=== PATIENT | male | born 1950 | race Caucasian/White ===

== ENCOUNTER 2017-03-09 14:11 | Inpatient (IN) ==
[2017-03-09] MEDS ORDERED: Aspirin 81 MG TAB.CHEW PO ONE (14:15)
--- NOTE | 2017-03-09 14:26 | Emergency Department Note ---
Disposition Clinical Impression: NSTEMI (non-ST elevated myocardial infarction) Disposition: Admitted As Inpatient Condition: Good Referrals: Thomas Gannon MD [Primary Care Provider] - Time of Disposition: 15:37 General Adult HPI - General Stated complaint: chest pain Time Seen by Provider: 03/09/17 14:14 Nursing Notes Reviewed: Yes Vital Signs Reviewed: Yes - History of Present Illness HPI Narrative: History of present illness: 66-year-old male history of hypertension hypercholesterolemia former smoker presents with exertional chest pain and pressure going to bilateral jaws with some nausea and dizziness. No prior history of coronary artery disease no prior stress test or cardiac catheterizations. Patient states he was in the [employer] working and he had about a 7 out of 10 just a heaviness in his chest that went to both jaws. She has never experienced this before. Patient says is about a 5 out of 10 right now he took aspirin and Advil when he was home. Here for further evaluation. - Related Data Home Medications Medication Instructions Recorded Confirmed Lisinopril/Hydrochlorothiazide 1 each PO QAM 12/01/14 12/01/14 [Zestoretic 10-12.5 mg Tablet] Multivits,Ca,Min/Iron/FA/Lycop 1 each PO QPM 12/01/14 12/01/14 [Centrum Men's Tablet] Previous Rx's Medication Instructions Recorded Aspirin 325 mg PO DAILY tablet 12/03/14 Glycerin/Propylene Glycol 15 ml OP Q1-2H PRN #1 drops 12/03/14 [Artificial Tears Drops] PredniSONE 10 mg PO DAILY #18 tablet 12/03/14 Allergies Allergy/AdvReac Type Severity Reaction Status Date / Time No Known Allergies Allergy Verified 03/09/17 14:42 All systems ED: reviewed and negative except as stated. Cardiovascular: Reports: chest pain, dyspnea on exertion Respiratory: Reports: dyspnea Neurological: Reports: other (Dizziness) Past Medical History - Past Medical History Attestation: Yes The following information was validated with the patient. Source: patient Medical history: Reports: hyperlipidemia, hypertension, other ( Hypercholesterolemia) Surgical history: Reports: no surgical history Psychiatric history: Reports: no psych history - Social History Smoking Status: Former smoker Alcohol use: Reports: none, occasionally Drug use: Reports: none Physical Exam - General Limitations: no limitations General appearance: alert, in distress - Head Head exam: atraumatic, normocephalic - Eye Eye exam: Present: normal appearance, PERRL, EOMI - ENT ENT exam: normal exam, normal oropharynx - Neck Neck exam: Present: normal inspection, full ROM - Chest Chest inspection: Present: normal inspection - Respiratory Respiratory exam: Present: normal lung sounds bilaterally - Cardiovascular Cardiovascular exam: Present: regular rate, normal rhythm - Abdominal Exam Abdominal exam: Present: soft, Non-Tender - Extremities Exam Extremities exam: Present: normal inspection, full ROM. Absent: pedal edema - Expanded Lower Extremity Exam Neurovascular/Tendon exam: Present: normal capillary refill Gait: observed and normal - Back Exam Back exam: Present: normal inspection, full ROM - Neurological Exam Neurological exam: Present: alert, oriented X3, CN II-XII intact - Psychiatric Psychiatric exam: Present: normal affect, normal mood - Skin Skin exam: Present: warm, dry, intact Course - Reevaluation(s) Reevaluation #1: Patient reported for acute coronary syndrome and chest pain. His heart score is 4 or greater. Troponin chest x-ray screening labs. Patient getting a nitroglycerin trial. Admission anticipated with disposition pending. Time: 14:28 Reevaluation #2: Krystal Reeves is nearing completion. Was notified patient had a chronically elevated troponin of 0.12. It was 0 when he was checked in November. Patient' s pain at its worse was 8 out of 10 now 6 out of 10 after 1 sublingual nitroglycerin. Patient is getting 2 more sublingual nitroglycerin repeat EKG will then likely consult cardiology. Disposition pending. Providing an additional 30 minutes of critical care services for this patient. Clinical diagnosis at this stage is NSTEMI Time: 15:08 Reevaluation #3: The case with the hairspring cutter Dr. Granado who agreed with my anticoagulation and admission to the hospitalist. Patient hospitalist awaiting call back. Disposition pending Time: 15:36 - Consultations Consultation #1: Discussed the case with the hospitalist Dr. JACK, patient accepted for admission in stable condition Vital Signs Temperature 97.9 F 03/09/17 14:17 Pulse Rate 80 03/09/17 14:17 Respiratory Rate 20 03/09/17 14:17 Blood Pressure 182/113 03/09/17 14:17 O2 Sat by Pulse Oximetry 93 03/09/17 14:17 Temperature 97.9 F 03/09/17 14:17 Pulse Rate 78 03/09/17 15:32 Respiratory Rate 20 03/09/17 15:32 Blood Pressure 119/83 03/09/17 15:32 O2 Sat by Pulse Oximetry 88 03/09/17 15:32 Oxygen Delivery Oxygen Delivery Nasal Cannula Medical Decision Making - Medical Records Medical records reviewed: Yes I reviewed the patient's medical records. - Lab Data Lab results reviewed: Yes I reviewed the patient's lab results. Result diagrams: 03/09/17 14:29 03/09/17 14:29 Lab Results 03/09/17 03/09/17 03/09/17 Range/Units 14:29 14:29 14:29 WBC 10.7 (4.3-11.1) K/mcL RBC 5.57 H (4.19-5.50) M/mcL Hgb 16.1 (12.9-16.9) g/dL Hct 49.2 (37.5-50.1) % MCV 88.3 (83.0-100.0) fL MCH 28.9 (28.0-33.3) pg MCHC 32.7 (31.6-35.5) g/dL RDW 13.2 (11.5-14.5) % Plt Count 273 (140-400) K/mcL MPV 9.7 (9.4-12.4) fL Immature Gran % 0.3 (0-4) % Seg Neutrophils % 55.3 % Lymphocytes % 30.5 % Monocytes % 7.8 % Eosinophils % 5.5 % Basophils % 0.6 % Neutrophils # 5.9 (1.6-8.9) K/mcL Lymphocytes # 3.3 (0.6-4.6) K/mcL Monocytes # 0.8 (0.0-1.3) K/mcL Eosinophils # 0.6 (0.0-0.6) K/mcL Basophils # 0.1 (0.0-0.2) K/mcL PT 11.1 (9.4-12.1) Seconds INR 1.0 Sodium 138 (136-145) mEq/L Potassium 3.8 (3.5-4.5) mEq/L Chloride 100 (98-109) mEq/L Carbon Dioxide 29 (19-29) mEq/L BUN 10 (8-26) mg/dL Creatinine 1.09 (0.72-1.25) mg/dL Est GFR ( Amer) > 60 (> 60) Est GFR (Non-Af Amer) > 60 (> 60) BUN/Creatinine Ratio 9 (6-26) Glucose 128 H (70-99) mg/dL Calculated Osmolality 287 (280-300) Calcium 9.1 (8.6-10.8) mg/dL Troponin I (0-0.03) ng/mL 03/09/17 Range/Units 14:29 WBC (4.3-11.1) K/mcL RBC (4.19-5.50) M/mcL Hgb (12.9-16.9) g/dL Hct (37.5-50.1) % MCV (83.0-100.0) fL MCH (28.0-33.3) pg MCHC (31.6-35.5) g/dL RDW (11.5-14.5) % Plt Count (140-400) K/mcL MPV (9.4-12.4) fL Immature Gran % (0-4) % Seg Neutrophils % % Lymphocytes % % Monocytes % % Eosinophils % % Basophils % % Neutrophils # (1.6-8.9) K/mcL Lymphocytes # (0.6-4.6) K/mcL Monocytes # (0.0-1.3) K/mcL Eosinophils # (0.0-0.6) K/mcL Basophils # (0.0-0.2) K/mcL PT (9.4-12.1) Seconds INR Sodium (136-145) mEq/L Potassium (3.5-4.5) mEq/L Chloride (98-109) mEq/L Carbon Dioxide (19-29) mEq/L BUN (8-26) mg/dL Creatinine (0.72-1.25) mg/dL Est GFR ( Amer) (> 60) Est GFR (Non-Af Amer) (> 60) BUN/Creatinine Ratio (6-26) Glucose (70-99) mg/dL Calculated Osmolality (280-300) Calcium (8.6-10.8) mg/dL Troponin I 0.12 H* (0-0.03) ng/mL - Radiology Data Radiology results reviewed: Yes I reviewed the patient's radiology results. - EKG Data EKG #1 EKG attestation: Yes I reviewed and interpreted this EKG. EKG results narrative: Twelve-lead EKG: Without cardiology shows Sinus rhythm at 79 bpm, normal LA QRS and QT corrected. Nonspecific ST-T changes. No acute ischemic changes when compared to prior EKG 12/01/2014
[2017-03-09 14:43] LABS: Basophils # 0.1 K/mcL (0.0-0.2); Basophils % 0.6 %; Eosinophils # 0.6 K/mcL (0.0-0.6); Eosinophils % 5.5 %; Hematocrit 49.2 % (37.5-50.1); Hemoglobin 16.1 g/dL (12.9-16.9); Immature Granulocytes % 0.3 % (0-4); Lymphocytes # 3.3 K/mcL (0.6-4.6); Lymphocytes % 30.5 %; Mean Corpuscular HGB Conc 32.7 g/dL (31.6-35.5); Mean Corpuscular Hemoglobin 28.9 pg (28.0-33.3); Mean Corpuscular Volume 88.3 fL (83.0-100.0); Mean Platelet Volume 9.7 fL (9.4-12.4); Monocytes # 0.8 K/mcL (0.0-1.3); Monocytes % 7.8 %; Neutrophils # 5.9 K/mcL (1.6-8.9); Platelet Count 273 K/mcL (140-400); Red Blood Count 5.57 M/mcL (4.19-5.50); Red Cell Distribution Width 13.2 % (11.5-14.5); Segmented Neutrophils % 55.3 %
[2017-03-09 14:52] LABS: Prothrombin Time 11.1 Seconds (9.4-12.1)
[2017-03-09 14:54] LABS: BUN/Creatinine Ratio 9 (6-26); Blood Urea Nitrogen 10 mg/dL (8-26); Calcium 9.1 mg/dL (8.6-10.8); Carbon Dioxide 29 mEq/L (19-29); Chloride 100 mEq/L (98-109); Glucose 128 mg/dL (70-99); Osmolality,Calculated 287 (280-300); Potassium 3.8 mEq/L (3.5-4.5); Sodium 138 mEq/L (136-145); eGFR For African Americans > 60 (> 60); eGFR For Non-African Americans > 60 (> 60)
[2017-03-09] MEDS: Nitroglycerin 0.4 MG TAB.SUBL SL PRN ×3 (14:56→15:26)
[2017-03-09] MEDS ORDERED: *HR* Heparin 5,000 UNIT/ML VIAL IVP ONE (15:35)
[2017-03-09] MEDS ORDERED: *HR* Heparin 5,000 UNIT/ML VIAL IVP PRN ×4 (15:35→16:28)
[2017-03-09] MEDS ORDERED: Heparin 25,000 UNIT/500 ML D5W 25,000 UNIT/500 ML BAG IVC SCH ×2 (15:45→16:30)
[2017-03-09 15:58] LABS: Activated Partial Thrombo Time 29.9 Seconds (26.0-36.0)
[2017-03-09] MEDS ORDERED: Ondansetron ODT 4 MG TAB.RAPDIS SL PRN (16:25)
[2017-03-09] MEDS ORDERED: *HR* Morphine 2 MG/ML SYRINGE IVP PRN (16:25)
[2017-03-09] MEDS ORDERED: Naloxone 0.4 MG/ML INJ IVP PRN (16:25)
[2017-03-09] MEDS ORDERED: Acetaminophen 325 MG TABLET PO PRN (16:25)
--- NOTE | 2017-03-09 16:37 | Internal Med History&Physical ---
<Ray Tompkins - Last Filed: 03/09/17 16:48> Date of Encounter: 03/09/17 Time of Encounter: 16:33 Assessment and Plan (1) NSTEMI (non-ST elevated myocardial infarction) Current visit: Yes Status: Acute Patient presents with symptoms of typical angina with chest pain radiating into his left jaw improve with sublingual nitroglycerin. - EKG demonstrates T-wave depressions in leads V2-V4 Troponin 0.12 - MARGARITA score: 4 ( greater than 3 CAD risk factors, aspirin use in the last 7 days, EKG changes, positive cardiac markers - Cardiology consult from the emergency department. Cardiac Hx 12/08: CTA neck-Unremarkable. Echo-EF 60-65%, mild LV diastolic dysfunction. Plan: - Cardiology to evaluate - ACS protocol with initiation of heparin drip - Nothing by mouth, admit to general medical floor and placed on cardiac monitoring - Standing daily weight - Echocardiogram - EKG - Aspirin 81 mg by mouth daily - Start metoprolol 12.5 mg by mouth twice a day - Morphine for chest pain. - Sublevel nitroglycerin - Atorvastatin 40 mg by mouth daily (2) HTN (hypertension) Current visit: No Status: Acute Patient has a known history of hypertension for which she was taking lisinopril- hydrochlorothiazide. - Current blood pressure 140/96. Plan: - Hold lisinopril prior to possible cardiac catheterization - Start metoprolol 12.5 mg by mouth twice a day Qualifiers: Hypertension type: essential hypertension Qualified Code(s): I10 - Essential (primary) hypertension (3) Hyperlipemia Current visit: No Status: Acute Patient has a self stated history of hyperlipidemia but has not started on any statin medications. - Lipid panel ordered - In the setting of NSTEMI will start Atorvastatin 40mg PO daily Qualifiers: Qualified Code(s): E78.5 - Hyperlipidemia, unspecified (4) DVT prophylaxis Current visit: Yes Status: Acute On Heparin drip currently. Internal Medicine - H&P: HPI Chief complaint: Chest pain Admitted From: Home Plans for Post Hospital Care: Home History of present illness: Mr. Fuller is a 66 year old male past medical history of hypertension, Mcgrath's palsy, diastolic heart failure presented to the emergency department with left- sided chest pain. 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 He denies ever having symptoms like this prior. He is quite active daily working in the [employer] with his truck and walking about the [employer]. He denies ever having chest pain or symptoms similar to this in the past. After the onset of discomfort she got in his truck and drove home where he took 2 aspirins and ibuprofen capsule. At the onset of his pain is described as 8/10 sharp chest pain that did not radiate to his back but did radiate to his left jaw and left face. The aspirin and ibuprofen did not improve his symptoms and he presented emergency department with his where he received nitroglycerin improving his chest discomfort to a 4/5 where it is currently with some mild left-sided jaw pain. He denies any associated nausea, vomiting, palpitations, shortness of breath, abdominal pain, constipation or diarrhea. He denies any diaphoresis or fevers. He denies any recent illnesses. He denies ever having any surgeries in the last time he was in the hospital he was evaluated for Mcgrath's palsy versus TIA. He denies any prior history of coronary artery disease. He does mention that his brother had coronary artery disease and required a CABG and several years later. He denies any other acute concerns at this time. Past Med Surg Social Fam HX - Past Medical History Medical history: hyperlipidemia, hypertension, other (Hypercholesterolemia) Psychiatric history: no psych history - Past Surgical History Surgical History: no surgical history - Social History Smoking Status: Former smoker (30 pack year history) Smokeless Tobacco Status: No Alcohol use: occasionally Drug use: none - Family History Father Living Status: Hx Family Cancer: Yes (Lung cancer) Mother Living Status: Hx Family Neurologic Disorders: Yes (Stroke) Brother Living Status: Hx Family Cardiac Disorders: Yes (CAD, CABG) Internal Medicine - H&P: Meds Lisinopril/Hydrochlorothiazide [Zestoretic 10-12.5 mg Tablet] 1 each PO QAM 11/07 [History] Multivits,Ca,Min/Iron/FA/Lycop [Centrum Men's Tablet] 1 each PO QPM 12/01/14 [ History] Aspirin 325 mg PO DAILY tablet 12/03/14 [Rx] Glycerin/Propylene Glycol [Artificial Tears Drops] 15 ml OP Q1-2H PRN #1 drops 12/03/14 [Rx] PredniSONE 10 mg PO DAILY #18 tablet 12/03/14 [Rx] 3 Allergy/AdvReac Type Severity Reaction Status Date / Time No Known Allergies Allergy Verified 03/09/17 14:42 All Systems PM: A 10-system review of systems was performed and is negative for pertinent findings except as documented above in the HPI. - Constitutional Constitutional: no chills, no fever(s), no night sweats Additional comments: Headache - EENT Eyes: no change in vision, no discharge, no pain, no photophobia Ears: no ear discharge, no ear pain, no tinnitus Nose, mouth and throat: mouth pain, no dysphagia, no nasal discharge, no neck pain, no sore throat - Cardiovascular Cardiovascular ROS IM: chest pain, no diaphoresis, no dyspnea, no dyspnea on exertion, no edema, no lightheadedness, no palpitations, no syncope - Respiratory Respiratory: no cough, no dyspnea, no wheezing, no excessive phlegm production - Gastrointestinal Gastrointestinal: no abdominal pain, no diarrhea, no hematemesis, no hematochezia, no melena, no nausea, no vomiting - Musculoskeletal Musculoskeletal ROS IM: no numbness, no tingling - Integumentary Integumentary IM: no rash, no unusual bruising - Neurological Neurological ROS: no confusion, no convulsions, no focal weakness, no numbness, no tingling, no tremor(s) - Hematologic/Lymphatic Hematologic/Lymphatic: no easy bruising - Constitutional Vitals: Temp Pulse Resp BP Pulse Ox 97.9 F 65 20 140/96 96 03/09/17 14:17 03/09/17 16:09 03/09/17 16:18 03/09/17 16:18 03/09/17 16:09 - Head Head exam: Present: atraumatic, normocephalic - Eye Eye exam: Present: PERRL, conjuntiva pink, sclera anicteric Pupils: Present: PERRL - Neck Neck exam general surgery: Present: supple, trachea midline. Absent: lymphadenopathy - Respiratory Respiratory exam: Present: CTAB. Absent: accessory muscle use, rales, rhonchi, wheezes - Cardiovascular Cardiovascular exam: Present: RRR, +S1, +S2. Absent: diastolic murmur, gallop, rubs, systolic murmur - GI/Abdominal GI/Abdominal exam: Present: normal bowel sounds, soft, no peritoneal signs. Absent: distended, tenderness - Extremities Exam Extremities exam: Present: warm, radial pulses palpable and symmetrical. Absent : calf tenderness, cyanotic, pedal edema - Neurological Exam Neurological exam: Present: CN II-XII intact, oriented X3, no focal deficits. Absent: pronater drift, facial droop, speech deficit - Skin Skin exam: Present: dry, intact Internal Med - H&P Results - Labs CBC & Chem 7: 03/09/17 14:29 03/09/17 14:29 <Terrell Bolanos - Last Filed: 03/09/17 18:15> Date of Encounter: 03/09/17 Assessment and Plan (1) NSTEMI (non-ST elevated myocardial infarction) Current visit: Yes Status: Acute (2) HTN (hypertension) Current visit: No Status: Chronic Qualifiers: Hypertension type: essential hypertension Qualified Code(s): I10 - Essential (primary) hypertension (3) Hyperlipemia Current visit: No Status: Chronic Qualifiers: Hyperlipidemia type: mixed hyperlipidemia Qualified Code(s): E78.2 - Mixed hyperlipidemia Internal Medicine - H&P: HPI History of present illness: Mr. Fuller is a 66 year old male All Systems PM: A 10-system review of systems was performed and is negative for pertinent findings except as documented above in the HPI. - Constitutional Vitals: Temp Pulse Resp BP Pulse Ox 97.9 F 65 20 140/96 96 03/09/17 14:17 03/09/17 16:09 03/09/17 16:18 03/09/17 16:18 03/09/17 16:09 Internal Med - H&P Results - Labs CBC & Chem 7: 03/09/17 17:08 03/09/17 14:29 Labs: Short CBC 03/09/17 Range/Units 17:08 WBC 13.3 H (4.3-11.1) K/mcL Hgb 15.7 (12.9-16.9) g/dL Hct 47.6 (37.5-50.1) % Plt Count 290 (140-400) K/mcL - Attending Attestation I examined this patient and my medical decision-making was reviewed with the Resident Physician on 03/09/17. I agree with the documented findings, disposition and treatment plan as described except to the extent set forth below. Mr Fuller is 66 y/o male with hx HTN presented to ED with complaints of chest and jaw pain. He was working today and had sudden onset of chest pressure radiating to jaw. He drove home and took ASA and motrin. No relief so came to ED. Evaluated and found to have ST segment depression and increasing troponin. He was placed on heparin and evaluated. He was subsequently admitted with acute NSTEMI. Currently he has some residual chest discomfort and is on nitro drip. EKG has improved. Exam Alert. Comfortable Mucus membranes dry Heart reg - not tachy Lungs clear Abd soft No edema I/P 1. Acute NSTEMI - on nitro, heparin. NPO after midnight. 2. HTN 3. Check lipids in AM Further diagnoses and plan as above.
--- NOTE | 2017-03-09 17:31 | Cardiology Consult Note ---
Date of Encounter: 03/09/17 Time of Encounter: 17:29 Assessment and Plan (1) NSTEMI (non-ST elevated myocardial infarction) Current Visit: Yes Status: Acute Symptoms, clinical findings suggestive of a NSTEMI. During my evaluation in ER, reported no chest discomfort since medical therapy started. Recommend continue ACS therapy. Check TTE. R/B/A to a LHC discussed. He and family are agreeable to proceed. Plan for tomorrow unless condition would warrant performing procedure sooner. Thanks, Eric Granado DO, FACC Discussion w patient/family: The assessment and plan as outlined above was discussed with the patient and/or family members who expressed understanding and agreement. All questions were answered. Thank you for involving us in the care of your patient. Please call with any questions. History of Present Illness Consult date: 03/09/17 Requesting physician: Terrell Bolanos Consult reason: NSTEMI Chief complaint: Chest discomfort History of present illness: Mr. Fuller is a 66 year old male presented with chest discomfort. 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 Substernal discomfort, no radiation. Mild nausea reported. Symptoms persistent until he received medications - aspirin/nitroglycering. I saw him in ER and stated felt much better. No prior cardiac history. Denies prior ID, stress testing, LHCs. Past Med Surg Social Fam HX - Past Medical History Medical history: hyperlipidemia, hypertension, other Psychiatric history: no psych history - Past Surgical History Surgical History: no surgical history - Social History Smoking Status: Former smoker Smokeless Tobacco Status: No Alcohol use: occasionally Drug use: none - Family History Mother Living Status: Hx Family Neurologic Disorders: Yes (Stroke) Brother Living Status: Hx Family Cardiac Disorders: Yes (CAD, CABG) Father Living Status: Hx Family Cancer: Yes (Lung cancer) Medications and Allergies Lisinopril/Hydrochlorothiazide [Zestoretic 10-12.5 mg Tablet] 1 each PO QAM 11/07 [History] Multivits,Ca,Min/Iron/FA/Lycop [Centrum Men's Tablet] 1 each PO QPM 12/01/14 [ History] Aspirin 325 mg PO DAILY tablet 12/03/14 [Rx] Glycerin/Propylene Glycol [Artificial Tears Drops] 15 ml OP Q1-2H PRN #1 drops 12/03/14 [Rx] PredniSONE 10 mg PO DAILY #18 tablet 12/03/14 [Rx] 3 Allergy/AdvReac Type Severity Reaction Status Date / Time No Known Allergies Allergy Verified 03/09/17 14:42 All Systems Review: A 10-system review of systems was performed and is negative for pertinent findings except as documented above in the HPI. - Cardiovascular Cardiovascular: as per HPI, chest pain at rest, chest pain with exertion - Gastrointestinal Gastrointestinal: nausea Physical Examination Vital Signs, Last 4 Hours Pulse Resp BP Pulse Ox 03/09/17 16:18 20 140/96 03/09/17 16:09 65 20 140/96 96 General: Conversant HEENT: Atraumatic, Normocephaly, Mucus Membranes Moist Neck: No JVD, Normal carotid pulses Cardiac: Reg Rate and Rhythm, Normal S1 and S2, No Murmur Lungs: Normal Breath Sounds, No Wheeze, Rales, Rhonchi Neuro: Alert and responsive, No focal deficits noted Abdomen: Soft, Non-Tender Skin: No rashes noted on visualized skin Musculoskeletal: No Chest Wall Tenderness Extremities: No Clubbing, No Cyanosis, No Edema Results 03/09/17 14:29 03/09/17 14:29 Impressions Chest X-Ray 03/09/17 14:15 IMPRESSION: No significant findings in the chest. D/ / Luis Miguel Hsu MD / Luis Miguel Hsu MD Interpreting Provider: Luis Miguel Hsu MD - Imaging and Cardiology Chest Xray: report reviewed - EKG Interpretation EKG results cardiology: personally reviewed Consult Discharge Plan - Plan
[2017-03-09 17:36] LABS: Hematocrit 47.6 % (37.5-50.1); Hemoglobin 15.7 g/dL (12.9-16.9); Mean Corpuscular Hemoglobin 28.6 pg (28.0-33.3); Mean Corpuscular Volume 86.7 fL (83.0-100.0); Mean Platelet Volume 10.2 fL (9.4-12.4); Platelet Count 290 K/mcL (140-400); Red Blood Count 5.49 M/mcL (4.19-5.50); Red Cell Distribution Width 13.1 % (11.5-14.5)
[2017-03-09 17:44] LABS: INR 1.1; Prothrombin Time 11.5 Seconds (9.4-12.1)
[2017-03-09] MEDS ORDERED: Nitroglycerin 25 MG/250 ML INFUS..BTL IVC SCH (17:45)
[2017-03-09 18:02] LABS: Activated Partial Thrombo Time 147.9 Seconds (26.0-36.0)
[2017-03-09 18:05] LABS: Chol/HDL Ratio 6.5 (0-4.9)
[2017-03-09 18:11] LABS: Heparin anti-factor XA UFH 0.98 IU/mL (0.30-0.70)
[2017-03-10 04:36] LABS: Basophils # 0.1 K/mcL (0.0-0.2); Basophils % 0.4 %; Eosinophils # 0.5 K/mcL (0.0-0.6); Eosinophils % 4.3 %; Hematocrit 46.2 % (37.5-50.1); Hemoglobin 15.2 g/dL (12.9-16.9); Immature Granulocytes % 0.3 % (0-4); Lymphocytes # 2.7 K/mcL (0.6-4.6); Lymphocytes % 23.9 %; Mean Corpuscular HGB Conc 32.9 g/dL (31.6-35.5); Mean Corpuscular Hemoglobin 28.5 pg (28.0-33.3); Mean Corpuscular Volume 86.7 fL (83.0-100.0); Mean Platelet Volume 9.6 fL (9.4-12.4); Monocytes % 9.1 %; Platelet Count 286 K/mcL (140-400); Red Blood Count 5.33 M/mcL (4.19-5.50); Red Cell Distribution Width 13.2 % (11.5-14.5)
[2017-03-10 04:47] LABS: BUN/Creatinine Ratio 10 (6-26); Blood Urea Nitrogen 11 mg/dL (8-26); Calcium 9.2 mg/dL (8.6-10.8); Carbon Dioxide 27 mEq/L (19-29); Chloride 104 mEq/L (98-109); Glucose 105 mg/dL (70-99); Osmolality,Calculated 290 (280-300); Potassium 4.1 mEq/L (3.5-4.5); Sodium 140 mEq/L (136-145); eGFR For African Americans > 60 (> 60); eGFR For Non-African Americans > 60 (> 60)
--- NOTE | 2017-03-10 06:29 | Event Note ---
Date of Encounter: 03/10/17 Time of Encounter: 01:00 Pt's troponin went up to 8.1 from 1.02. Pt denied any CP / SOB, he was resting comfortably, he does feel lot better now compare to y/d. I ordered on EKG - which showed new T wave inversions in anterior and inferior leads. Nurse did talk to bond analyst wheat farmer Dr. Granado who suggested inc his Nitro gtt and scheduled for jockey agent LHC.
[2017-03-10] MEDS ORDERED: Nitroglycerin 1,000 MCG/10 ML VIAL IV ONE (08:39)
[2017-03-10] MEDS ORDERED: Heparin 1,000 UNITS/500 mL NS 500 ML ONE (08:39)
[2017-03-10] MEDS ORDERED: *HR* Heparin 10,000 UNIT/10 ML VIAL ONE (08:39)
[2017-03-10] MEDS ORDERED: 0.9 % Sodium Chloride 1,000 ML ONE ×2 (08:39→09:18)
--- NOTE | 2017-03-10 08:42 | Internal Med Progress Note ---
<Ray Tompkins - Last Filed: 03/10/17 09:23> Date of Encounter: 03/10/17 Time of Encounter: 08:19 - Assessment and plan (1) NSTEMI (non-ST elevated myocardial infarction) Current Visit: Yes Status: Acute Assessment and plan: Patient presents with symptoms of typical angina with chest pain radiating into his left jaw improve with sublingual nitroglycerin. - EKG demonstrates T-wave depressions on admission in leads V2-V4, EKG this am without ST depression or elevation. Troponin 0.12 -> 1.02 -> 8.10 -> 19.83 - MARGARITA score: 4 ( greater than 3 CAD risk factors, aspirin use in the last 7 days, EKG changes, positive cardiac markers) Cardiac Hx 12/08: CTA neck-Unremarkable. Echo-EF 60-65%, mild LV diastolic dysfunction. - Cardiology following, plan for cardiac cath today. Plan: - Cardiology to evaluate - ACS protocol with initiation of heparin drip - Nothing by mouth, admit to general medical floor and placed on cardiac monitoring - Standing daily weight - Echocardiogram, results pending - EKG - Aspirin 81 mg by mouth daily - Continue metoprolol 12.5 mg by mouth twice a day - Morphine for chest pain. - Continue nitroglycerin drip - Atorvastatin 40 mg by mouth daily (2) HTN (hypertension) Current Visit: No Status: Chronic Assessment and plan: Patient has a known history of hypertension for which she was taking lisinopril- hydrochlorothiazide. - Current blood pressure appropriate Plan: - Hold lisinopril prior to possible cardiac catheterization - Start metoprolol 12.5 mg by mouth twice a day Qualifiers: Hypertension type: essential hypertension Qualified Code(s): I10 - Essential (primary) hypertension (3) Hyperlipemia Current Visit: No Status: Chronic Assessment and plan: Cholesterol 273, LDL 213, Plan: - Atorvastatin 40mg PO daily - discuss diet changes and exercise routine. Qualifiers: Hyperlipidemia type: mixed hyperlipidemia Qualified Code(s): E78.2 - Mixed hyperlipidemia (4) DVT prophylaxis Current Visit: Yes Status: Acute Assessment and plan: currently on heparin drip. - Subjective Interval history: Patient seen this am, chest pain free, complains of a mild headache on nitroglycern drip. Denies diaphoresis, chills, fever, chest pain, chest pressure , SOB, palpitations, N/V/D/C, abdominal pain. He has been NPO for cardiac cath today. No further questions. - Constitutional Vitals: Temp Pulse Resp BP Pulse Ox 98.8 F 79 18 133/88 96 03/10/17 07:08 03/10/17 07:08 03/10/17 07:08 03/10/17 07:08 03/10/17 07:08 General appearance: Present: cooperative, A&O X 3, pleasant - Head Head exam: Present: atraumatic, normocephalic - Eye Eye exam: Present: PERRL, conjuntiva pink, sclera anicteric Pupils: Present: PERRL - Neck Neck exam general surgery: Present: supple, trachea midline. Absent: lymphadenopathy - Respiratory Respiratory exam: Present: CTAB. Absent: accessory muscle use, rales, rhonchi, wheezes - Cardiovascular Cardiovascular exam: Present: RRR, +S1, +S2. Absent: diastolic murmur, gallop, rubs, systolic murmur - GI/Abdominal GI/Abdominal exam: Present: normal bowel sounds, soft, no peritoneal signs. Absent: distended, tenderness - Extremities Exam Extremities exam: Present: warm, radial pulses palpable and symmetrical. Absent : calf tenderness, cyanotic, pedal edema - Neurological Exam Neurological exam: Present: alert, oriented X3, no focal deficits. Absent: pronater drift, facial droop, speech deficit - Skin Skin exam: Present: dry, intact Internal Medicine: Result - Labs CBC & Chem 7: 03/10/17 04:23 03/10/17 04:23 Labs: Short CBC 03/09/17 03/10/17 Range/Units 17:08 04:23 WBC 13.3 H 11.3 H (4.3-11.1) K/mcL Hgb 15.7 15.2 (12.9-16.9) g/dL Hct 47.6 46.2 (37.5-50.1) % Plt Count 290 286 (140-400) K/mcL Neutrophils # 7.0 (1.6-8.9) K/mcL BMP 03/10/17 04:23 Sodium 140 Potassium 4.1 Chloride 104 Carbon Dioxide 27 BUN 11 Creatinine 1.10 Glucose 105 H Calcium 9.2 Cardiac Enzymes 03/09/17 03/09/1717 Range/Units 17:08 22:03 04:23 Troponin I 1.02 H* 8.10 H* 19.83 H* (0-0.03) ng/mL - ABG Interpretation ABG results: PT/INR, D-dimer PT 11.5 Seconds (9.4-12.1) 03/09/17 17:08 - VTE Reasons for not Prescribing Prophylaxis: Not indicated-Anticoagulated or INR therapeutic Consult Discharge Plan - Plan Referrals: Thomas Gannon MD [Primary Care Provider] - <Terrell Bolanos - Last Filed: 03/10/17 15:45> Date of Encounter: 03/10/17 - Assessment and plan (1) NSTEMI (non-ST elevated myocardial infarction) Current Visit: Yes Status: Acute (2) HTN (hypertension) Current Visit: No Status: Chronic Qualifiers: Hypertension type: essential hypertension Qualified Code(s): I10 - Essential (primary) hypertension (3) Hyperlipemia Current Visit: No Status: Chronic Qualifiers: Hyperlipidemia type: mixed hyperlipidemia Qualified Code(s): E78.2 - Mixed hyperlipidemia (4) CAD (coronary artery disease) Current Visit: Yes Status: Chronic Qualifiers: Coronary Disease-Associated Artery/Lesion type: [place] artery [place] vs. transplanted heart: [place] heart Associated angina: without angina Qualified Code(s): I25.10 - Atherosclerotic heart disease of [place] coronary artery without angina pectoris - Constitutional Vitals: Temp Pulse Resp BP Pulse Ox 98.1 F 89 16 111/74 93 03/10/17 14:47 03/10/17 14:47 03/10/17 14:47 03/10/17 14:47 03/10/17 14:47 Internal Medicine: Result - Labs CBC & Chem 7: 03/10/17 04:23 03/10/17 04:23 - ABG Interpretation ABG results: PT/INR, D-dimer PT 11.5 Seconds (9.4-12.1) 03/09/17 17:08 - Attending Attestation I examined this patient and my medical decision-making was reviewed with the Resident Physician on 03/10/17. I agree with the documented findings, disposition and treatment plan as described except to the extent set forth below. Mr Fuller is currently admitted for acute NSTEMI. He remains moderate to high risk due to potential for worsening cardiac status. Mr Fuller feels OK this AM. He has no chest pain at this time. Slept OK. No fever or chills. Awaiting cardiac cath. Exam Alert. Comfortable Mucus membranes dry Heart reg No wheeze Abd soft I/P 1. NSTEMI 2. CAD 3. HTN Further diagnoses and plan as above.
[2017-03-10] MEDS ORDERED: Aspirin 81 MG TAB.CHEW PO SCH (09:00)
[2017-03-10] MEDS ORDERED: *HR* FentaNYL (PF) 100 MCG/2 ML VIAL ONE (09:20)
[2017-03-10] MEDS ORDERED: *HR* Midazolam HCl 2 MG/2 ML VIAL ONE ×2 (09:20→09:34)
--- NOTE | 2017-03-10 09:21 | Pre-Sedation Evaluation ---
Pre-sedation evaluation - Pre-sedation checklist Date of procedure: 03/10/17 Procedure: [place] Recent Vitals: Last Vital Signs Temp 98.8 F 03/10/17 07:08 Pulse 79 03/10/17 07:08 Resp 18 03/10/17 07:08 BP 133/88 03/10/17 07:08 Pulse Ox 96 03/10/17 07:08 H&P (including ROS) documented in medical record: Yes Previous reaction to sedatives/anesthetics: Unknown Dietary Status: NPO after Midnight Airway Assessment: Patient can open mouth completely, TMJ function normal Dentition: No loose teeth or bridges Possible difficult airway: No ASA Classification *see protocol: CLASS II-Mild systemic disease Plan of Care: Pt appropriate candidate for procedure/moderate/conscious sedation , Risks/benefits of procedure/sedation discussed w/ patient/family
[2017-03-10] MEDS ORDERED: Tirofiban 12.5 MG/250ML 12.5 MG/250 ML BAG ONE (09:39)
--- NOTE | 2017-03-10 10:54 | Procedure Note ---
Date of procedure: 03/10/17 Pre-op diagnosis: Non-STEMI Post-op diagnosis: same Procedure: Cardiac catheter with coronary intervention. Diagnostic findings: LM-normal LAD-60% proximal Cx-30% mid, ectatic OM 2-100% proximal, ectatic RCA-40-50% mid, dominant LVEF-50-55% PCI: OM 2- 100% to 0% with a 3.0 mm x 24 mm Synergy GENI proximal postdilated to 3.5 mm and a 2.25 mm x 20 mm Synergy GENI in the midportion which is overlapped by the proximal stent. Impression: 1. Severe 1 vessel coronary disease with successful recatheterization using drug-eluting stent implantation 2 2. Moderate angiographically appearing stenosis of the LAD and RCA 3. Preserved LV systolic function Plan: 1. Aspirin indefinitely 2. Effient/equivalent for minimum of 1 year but given coronary ectasia would consider longer-term DAPT 3. Statin 4. Beta breanne 5. Consider further cardiac risk stratification of the LAD and RCA with stress testing Anesthesia: IV sedation Surgeon: Juan Craig Estimated blood loss (cc): 20 Pathology: none sent Condition: stable Disposition: ICU
--- NOTE | 2017-03-10 11:11 | Cardiology Progress Note ---
Date of Encounter: 03/10/17 Time of Encounter: 11:09 Assessment and Plan (1) NSTEMI (non-ST elevated myocardial infarction) Current Visit: Yes Status: Acute Non-ST segment elevation myocardial infarction. Recommend continue ACS therapy, including aspirin, statin, beta breanne, and heparin drip. Since patient is chest pain-free, we will hold off dual antiplatelet therapy until time of catheterization. Risks, benefits, and alternatives to cardiac catheterization discussed. Patient and agreeable. Scheduled for this morning. Further recommendations to follow cardiac catheterization and echocardiogram. Discussion w patient/family: The assessment and plan as outlined above was discussed with the patient and/or family members who expressed understanding and agreement. All questions were answered. Thank you for involving us in the care of your patient. Please call with any questions. Subjective Principal diagnosis: Chest discomfort Interval history: Patient seen and examined earlier today. Increase in troponin noted. Patient reports he was chest pain-free overnight and this morning. Objective General: Conversant, No Apparent Distress HEENT: Atraumatic, Normocephaly, Mucus Membranes Moist Neck: No JVD, Normal carotid pulses Cardiac: Reg Rate and Rhythm, Normal S1 and S2, No Murmur Lungs: Normal Breath Sounds, No Wheeze, Rales, Rhonchi Neuro: Alert and responsive, No focal deficits noted Abdomen: Soft, Non-Tender Skin: No rashes noted on visualized skin Musculoskeletal: No Chest Wall Tenderness Extremities: No Clubbing, No Cyanosis, No Edema Results 03/10/17 04:23 03/10/17 04:23 - EKG Interpretation EKG results cardiology: personally reviewed - VTE Reasons for not Prescribing Prophylaxis: Not indicated-Anticoagulated or INR therapeutic Consult Discharge Plan - Plan Referrals: Thomas Gannon MD [Primary Care Provider] -
--- NOTE | 2017-03-10 12:02 | Invasive Diagnostic Lab Proc ---
Name: Marvin Fuller Date of Study: 03/10/2017 Date: 1950 Ht: 69.0in Medical Record#: [id number] Age: 66 Wt: 198.42lb Gender: Male BSA: 2.06 Order #: [id number] BMI: 29.29 Physicians Procedure Physician: Juan Craig MD Referring MD: Thomas Gannon MD Referring MD: Staff Name Position Time In Isabel Fay RT (R) Monitor 09:16 AM Karishma Shook RN Intelligence Operations 09:16 AM Debo Ayala RT Scrub 09:16 AM Indications Indication Non-Stemi Procedures Performed Procedure L HRT ARTERY/VENTRICLE ANGIO PRQ CARD GENI STENT W/ANGIO 1 VSL Pre-Procedure Checklist Informed consent is complete signed and on chart. H&P is on chart. ID band is on and ID verified with patient. Patient NPO for procedure The procedure was described for the patient and questions were answered. Blood Pressure: 132/84 ECG is on chart. Rhythm: NSR Plan of Care Patient will tolerate the procedure without complications. Adequate level of comfort will be maintained. Hemodynamics will remain stable Patient will recover from procedure without complications. Respiratory function will be maintained. Cardiac rhythm will remain stable. Patient temperature will be maintained. Patient and/or family have verbalized understanding of the procedure. Patient Education Chief Complaint/Reason for Test: Cardiac Cath Developmental Category: Adult (18-64 years) Developmentally Appropriate for Age: Yes Learning Barriers: None Education Needs: Procedure Education Method: Verbal Information Taught: Cardiac Cath Educational Evaluation: Able to repeat information Intravenous Access Time IV Size Location DC'd Fluid/Drip Rate Units RN 08:36 AM 18g 1 1/4" Patent On Arrival Lt Antecubital 0.9NaCl 25 ml/hr Karishma Shook RN Allergies No Known Allergies Vital Signs Time BP (mmHg) HR (bpm) O2 Sat. RR (bpm) LOC 133 / 88 79 96 % 18 5 = Fully awake and oriented or at pre-proc level 09:16 AM / % 5 = Fully awake and oriented or at pre-proc level 09:16 AM / % 4 = Oriented but drowsy 09:31 AM / % 4 = Oriented but drowsy 09:47 AM / % 4 = Oriented but drowsy 10:02 AM / % 4 = Oriented but drowsy 10:17 AM / % 4 = Oriented but drowsy 09:19 AM 132 / 84 82 94 % 24 09:24 AM 127 / 89 77 97 % 28 09:29 AM 134 / 83 68 96 % 14 09:34 AM 124 / 80 69 97 % 15 09:39 AM 117 / 86 73 96 % 15 09:44 AM 121 / 84 74 97 % 17 09:49 AM 115 / 77 71 97 % 13 09:54 AM 113 / 77 69 97 % 14 09:59 AM 106 / 78 68 97 % 14 10:04 AM 112 / 78 67 97 % 13 10:09 AM 122 / 79 66 97 % 15 10:14 AM 113 / 74 69 95 % 15 10:19 AM 121 / 78 66 96 % 15 10:24 AM 111 / 83 65 96 % 14 10:29 AM 116 / 76 67 94 % 21 10:34 AM 127 / 81 66 96 % 17 10:45 AM 121 / 63 66 92 % 20 5 = Fully awake and oriented or at pre-proc level 11:00 AM 122 / 81 66 93 % 20 5 = Fully awake and oriented or at pre-proc level 11:15 AM 110 / 78 69 92 % 16 5 = Fully awake and oriented or at pre-proc level 11:30 AM 123 / 92 64 93 % 22 5 = Fully awake and oriented or at pre-proc level Procedural Medications Time Medication Dose Units Method Given By 09:16 AM Oxygen 2 L/min nasal cannula Karishma Shook RN 09:22 AM Versed 2 mg Intravenous Karishma Shook RN 09:22 AM Fentanyl 50 mcg Intravenous Karishma Shook RN 09:32 AM Lidocaine 2% 20 ml Subcutaneous Juan Craig MD 09:34 AM Versed 1 mg Intravenous Karishma Shook RN 09:43 AM Heparin 4000 units Intravenous Karishma Shook RN 09:45 AM Aggrastat Bolus: 46 ml Intravenous Karishma Shook RN 09:45 AM Aggrastat 12.5mg/250ml 16.5 ml Intravenous Karishma Shook RN 10:12 AM Nitroglycerin 200 mcg Intracoronary Juan Craig MD 10:24 AM Nitroglycerin 200 mcg Intracoronary Juan Craig MD 10:32 AM Effient 60 mg Orally Karishma Shook RN ASA Classification: CLASS II- Mild systemic disease (i.e. well-controlled diabetes, hypertension, asthma, cigarette smoking) Horace Score Preprocedure Postprocedure Activity 2- Moves 4 extremities sustained head lift Activity 2- Moves 4 extremities sustained head lift Circulation 2- SBP +/= 20 points of pre-anesthetic level Circulation 2- SBP +/= 20 points of pre-anesthetic level Consciousness 2- Awake and alert oriented x 3 Consciousness 2- Awake and alert oriented x 3 O2 Saturation 2- Able to maintain O2 satruation of 92% on room air O2 Saturation 2- Able to maintain O2 satruation of 92% on room air Respiratory 2- Able to deep breathe and cough well Respiratory 2- Able to deep breathe and cough well Total Score 10 Total Score 10 Contrast Agent: Isovue Diagnostic Contrast: 179 ml Total Contrast: 179 ml Fluoro Dose: 1843 mGy Activated Clotting Time Time Seconds to Clot 09:43 AM 150 10:02 AM 263 10:32 AM 218 11:35 AM 152 Procedure Log Time Note Enter By 09:15 AM CathStat 09:15 AM 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 twilson 09:16 AM Procedure start 09:16 twilson 09:16 AM ASA Class CLASS II- Mild systemic disease (i.e. well-controlled diabetes, hypertension, asthma, cigarette smoking) twilson 09:16 AM Patient charges- Angio tray pack, Navilyst 3mm J, Pulse Oximetry and ACIST tubing and transducer twilson 09:16 AM IV Supplies used: J loop Angio Cath. twilson 09:16 AM Isabel Fay RT (R) Position: Monitor Time in: :16 twilson 09:16 AM Karishma Shook RN Position: Intelligence Operations Time in: :16 twilson 09:16 AM Debo Ayala RT Position: Scrub Time in: :16 twilson 09:16 AM Case Delayed no twilson 09:16 AM Time: 09:16 Oxygen on at 2 L/min per nasal cannula by Karishma Shook RN twilson 09:16 AM Time: 09:16 Patient comfortable and pain free: Yes twilson 09:16 AM Time: 09:16LOC: 5 = Fully awake and oriented or at pre-proc level twilson 09:18 AM Vitals capture started with the following parameters, Patient=Adult, Interval=5 min, Initial Vigufhea=136 mmHg, Deflation Rate=5 mmHg, Cuff placed on Right Arm 09:19 AM HR=82 bpm, FGWV=031/84 mmhg, SpO2=94.0 %, Resp=24 B/min 09:21 AM Recorded ECG: HR=82 Condition=Condition 1 09:22 AM Time: 09:22 Versed 2 mg Intravenous Given by Karishma Shook RN twilson 09:22 AM Time: 09:22 Fentanyl 50 mcg Intravenous Given by Karishma Shook RN twilson 09:23 AM Hair removed from procedure site in procedure lab using clippers. Bilateral groin prepped with Chloraprep by Karishma Shook RN, safety strap applied then patient was draped. Skin intact. twilson 09:24 AM HR=77 bpm, QZJG=953/89 mmhg, SpO2=97.0 %, Resp=28 B/min 09:29 AM HR=68 bpm, JZEE=628/83 mmhg, SpO2=96.0 %, Resp=14 B/min 09:29 AM Pressure channel 3 zeroed. 09:30 AM Pressure channel 2 zero failed. 09:30 AM Pressure channel 2 zeroed. 09:31 AM Time out performed according to hospital policy twilson 09:31 AM Time: 09:16LOC: 4 = Oriented but drowsy twilson 09:32 AM Time: 09:16 Patient comfortable and pain free: Yes twilson 09:32 AM Time: 09:32 20 ml Lidocaine 2% to right groin Subcutaneous Given by Juan Craig MD twilson 09:33 AM Micro-Introducer Kit utilized for sheath placement twilson 09:33 AM Access obtained by percutaneous puncture. 6Fr 10cm Terumo [place] sheath placed in right Femoral artery. [id number] twilson 09:34 AM 5Fr FL 4 catheter inserted over the wire DNC twilson 09:34 AM HR=69 bpm, UDDM=312/80 mmhg, SpO2=97.0 %, Resp=15 B/min 09:34 AM Wire removed, intact. twilson 09:34 AM Time: 09:34 Versed 1 mg Intravenous Given by Karishma Shook RN twilson 09:35 AM LCA angiography performed in multiple views. twilson 09:35 AM Recorded Pressure: Ao, HR=67, Condition=Condition 1 (Aorta) Ao 109/80/95 09:36 AM Inflation device was opened. twilson 09:36 AM Bed management called for 2N bed. twilson 09:37 AM Catheter removed twilson 09:37 AM 5Fr FR 4 catheter inserted over the wire [facility] twilson 09:37 AM Wire removed, intact. twilson 09:38 AM RCA angiography performed in multiple views. twilson 09:38 AM Recorded Pressure: Ao, HR=67, Condition=Condition 1 (Aorta) Ao 110/82/96 09:39 AM HR=73 bpm, QXLQ=659/86 mmhg, SpO2=96.0 %, Resp=15 B/min 09:39 AM Catheter removed twilson 09:39 AM 5Fr Pigtail catheter inserted over the wire [facility] twilson 09:40 AM heparin was turned off in room per Karishma Shook. twilson 09:41 AM Pressure channel 2 zero failed. 09:41 AM Pressure channel 2 zeroed. 09:41 AM Recorded Pressure: LV, HR=71, Condition=Condition 1 (Left Ventricle) LV 117/-1/7 09:41 AM Catheter selectively placed in left ventricle twilson 09:42 AM Bolus angiogram of left Ventricle complete: 12 ml/sec for a total of 24 mls twilson 09:42 AM Recorded Pressure: LV, Ao, HR=72, Condition=Condition 1 (Left Ventricle) LV 123/0/6, (Aorta) Ao 123/76/96 09:42 AM Pressure channel 2 zeroed. 09:42 AM Wire removed twilson 09:42 AM Catheter removed twilson 09:43 AM PCI Status Urgent twilson :43 AM 6Fr XB3.5 Cordis guide catheter was used to cannulate the PCI vessel successfully. reused? No twilson 09:43 AM ACT is 150. twilson 09:44 AM HR=74 bpm, DUEH=976/84 mmhg, SpO2=97.0 %, Resp=17 B/min :44 AM Time: :43 Heparin 4000 units Intravenous Given by Karishma Shook RN twilson 09:44 AM Guide catheter removed intact. twilson 09:44 AM 6Fr XB4.0 Cordis guide catheter was used to cannulate the PCI vessel successfully. reused? No tw:45 AM Wire removed intact. twilson 09:45 AM Time: 09:45 Aggrastat Bolus: 46 ml Intravenous Given by Karishma Shook RN Varner pump twilson 09:46 AM Time: 09:45 Aggrastat 12.5mg/250ml 16.5 ml Intravenous Given by Karishma Shook RN Varner pump twilson 09:46 AM .014 Choice Extra Support 182cm guide wire across target lesion- successful. reused? No twilson 09:47 AM PCI Indication: PCI for high risk Non-STEMI or unstable angina twilson :47 AM Time: :LOC: 4 = Oriented but drowsy twilson :47 AM Time: 09:32 Patient comfortable and pain free: Yes twilson 09:49 AM HR=71 bpm, JDNS=820/77 mmhg, SpO2=97.0 %, Resp=13 B/min 09:49 AM PCI lesion in 2nd Marginal. Pre Stenosis: 100 Pre MARGARITA Flow: 0: No Flow/No perfusion twilson 09:50 AM Guide wire removed intact. twilson 09:50 AM .014 Whisper 190cm guide wire across target lesion- successful. reused? No twilson 09:50 AM Circumflex, Obtuse Marginal, Left Posterior Descending, and Left Posterolateral Coronary Arteries with 100 % stenosis. If graft is supplying this area, 0 % stenosis twilson 09:54 AM HR=69 bpm, KYGV=312/77 mmhg, SpO2=97.0 %, Resp=14 B/min 09:55 AM Drawing ACT and running. twilson 09:55 AM 6F PRONTO V4 Extraction Catheter inserted over the wire. twilson 09:58 AM Pronto catheter removed, intact. twilson 09:58 AM Recorded Pressure: Ao, HR=69, Condition=Condition 1 (Aorta) Ao 113/82/96 09:58 AM 2.5 mm x 20 mm Emerge Monorail balloon across target lesion- successful. reused? No twilson 09:59 AM HR=68 bpm, XXDB=870/78 mmhg, SpO2=97.0 %, Resp=14 B/min 10:01 AM Balloon inflated @ 6 samanta for 60 seconds twilson 10:02 AM Time: :47 Patient comfortable and pain free: Yes twilson 10:02 AM Time: :47LOC: 4 = Oriented but drowsy twilson 10:02 AM Balloon inflated @ 8 samanta for 60 seconds twilson 10:02 AM At 10:02 the ACT was 263 seconds. twilson 10:03 AM Balloon catheter removed intact. twilson 10:04 AM HR=67 bpm, FACR=416/78 mmhg, SpO2=97.0 %, Resp=13 B/min 10:05 AM Recorded Pressure: Ao, HR=68, Condition=Condition 1 (Aorta) Ao 122/86/103 10:09 AM HR=66 bpm, QNKF=257/79 mmhg, SpO2=97.0 %, Resp=15 B/min 10:09 AM Recorded Pressure: Ao, HR=68, Condition=Condition 1 (Aorta) Ao 110/84/96 10:09 AM 2.25mm x 20mm Synergy drug-eluting stent across target lesion- successful Lot #[id number] twilson 10:09 AM Stent deployed @ 14 samanta for 20 seconds twilson 10:10 AM Stent delivery system removed intact. twilson 10:13 AM Time: 10:12 Nitroglycerin 200 mcg Intracoronary Given by Juan Craig MD twilson 10:13 AM Guide wire removed intact. twilson 10:13 AM Recorded Pressure: Ao, HR=80, Condition=Condition 1 (Aorta) Ao 99/73/86 10:14 AM HR=69 bpm, CHIT=259/74 mmhg, SpO2=95.0 %, Resp=15 B/min 10:16 AM Whisper wire reinserted. twilson 10:17 AM Time: 10:02LOC: 4 = Oriented but drowsy twilson 10:17 AM Time: 10:02 Patient comfortable and pain free: Yes twilson 10:18 AM 3.0mm x 24mm Synergy drug-eluting stent across target lesion- successful Lot #[id number] twilson 10:19 AM HR=66 bpm, PPRD=323/78 mmhg, SpO2=96.0 %, Resp=15 B/min 10:20 AM Stent deployed @ 11 samanta for 15 seconds twilson 10:20 AM Stent delivery system removed intact. twilson 10:22 AM 3.5 mm x 15mm NC Emerge balloon across target lesion- successful. reused? No twilson 10:23 AM Balloon inflated @ 20 samanta for 20 seconds twilson 10:23 AM Balloon inflated @ 20 samanta for 10 seconds twilson 10:24 AM HR=65 bpm, OYUS=056/83 mmhg, SpO2=96.0 %, Resp=14 B/min 10:24 AM Balloon catheter removed intact. twilson 10:24 AM Time: 10:24 Nitroglycerin 200 mcg Intracoronary Given by Juan Craig MD twilson 10: AM Wire and catheter removed, intact. twilson 10:27 AM Bolus angiogram of right Femoral complete: 2 ml/sec for a total of 4 mls twilson 10:28 AM ACT drawn. twilson 10:28 AM Procedure completed at 10:28 twilson 10:29 AM HR=67 bpm, SZVK=869/76 mmhg, SpO2=94.0 %, Resp=21 B/min 10:30 AM Sign out completed: Radiation Dose 1842.79 mGy Fluoro Time: 12 Isovue 370 - 200ml contrast 179 ml given by Juan Craig MD. Complications: NoneCardiac Rehab Consult needed: YesConfirmed administered medications: Yes twilson 10:30 AM Isovue 370 - 500ml,1 Bottle(s) used. twilson 10:30 AM Sheath left in place to be pulled on floor/holding areaV+Pad twilson 10:32 AM ACT is 218. twilson 10:32 AM Time: 10:32 Effient 60 mg Orally Given by Karishma Shook RN twilson 10:32 AM Time: 10:17 Patient comfortable and pain free: Yes twilson 10:33 AM Time: 10:17LOC: 4 = Oriented but drowsy twilson 10:33 AM Estimated Blood Loss: minimal twilson 10:33 AM Post ECG NSR twilson 10:34 AM HR=66 bpm, GMNV=263/81 mmhg, SpO2=96.0 %, Resp=17 B/min 10:34 AM Post Blood Pressure 116/76 twilson 10:34 AM 10:34 Post Pulses Bilateral DP & PT 1+ twilson 10:34 AM 10:34 Post Pulses Bilateral radial 1+ twilson 10:35 AM Information taught Cardiac Cath and PCI twilson 10:35 AM Education needs Procedure, Plan of Care, and Responsibilities of Patient in Care twilson 10:35 AM Learning barriers :None twilson 10:35 AM Education Methods Verbal twilson 10:35 AM Education evaluation Able to repeat information twilson 10:35 AM Site status No bleeding/hematoma - Rt Groin as reported by Debo Ayala RT at 10:35 twilson 10:35 AM Opsite applied twilson 10:35 AM Plavix, Effient or Brilinta given Yes twilson 10:36 AM Family placed in consult room. twilson 10:37 AM Coronary Dominance: right twilson 10:38 AM Lesion found in Mid RCA. Pre Stenosis: 40 Pre MARGARITA Flow: twilson 10:39 AM Right Coronary, Right Posterior Descending Arteries with Right Posterolateral and Acute Marginal branches with 40 % stenosis. If graft is supplying this area, 0 % stenosis twilson 10:39 AM Lesion found in Mid LAD. Pre Stenosis: 60 Pre MARGARITA Flow: twilson 10:40 AM Lesion found in Mid Circumflex. Pre Stenosis: 30 Pre MARGARITA Flow: twilson 10:44 AM No 2N or ICU beds available. Patient in 2N being moved to 2A and then 2N bed will need cleaned. twilson 10:46 AM Mid/Distal Left Anterior Descending Coronary Artery and diagonal branches with 60% stenosis. If graft is supplying this area, 0 % stenosis twilson 10:46 AM Patient out of room: 10:46 twilson 10:46 AM Patient will recover in holding room with the call team until bed is available. twilson 10:50 AM Received patient to holding area bay 4. Monitors applied. Family at bedside. [facility] 11[facility]35 AM At 11:35 the ACT was 152 seconds. [facility] 11:36 AM Arterial sheath pulled using manual compression for 15 minutes by Isabel Fay RT (R) [facility] Craig aware sheath is out. Ok to return to 2[facility] 11:56 AM Report given to Stephanie VILLARREAL Pt taken to 2A Room #26. 11:56 [facility] 11:56 AM Site status No bleeding/hematoma - Rt Groin as reported by Isabel Fay RT (R) at 11:56 [facility] 11:56 AM Opsite applied [facility] 11:56 AM [facility]: [facility] Complications Complication None Hemodynamics Pressures Site Systolic/A Wave Diastolic/V Wave Mean AO 109 80 95 AO 110 82 96 LV 117 -1 7 LV 123 0 6 AO 123 76 96 AO 113 82 96 AO 122 86 103 AO 110 84 96 AO 99 73 86 Post Procedure Information Blood Pressure: 116/76 mmHg Rhythm: NSR Post procedural instructions were given Site Checks Time Location Status Staff Sheath In? Note 10:35 AM Rt Groin No bleeding/hematoma Debo Ayala RT Yes 10:45 AM Rt Groin No bleeding/ No Hematoma Karishma Shook RN Yes 11:00 AM Rt Groin No bleeding/ No Hematoma Karishma Shook RN Yes 11:15 AM Rt Groin No bleeding/ No Hematoma Karishma hSook RN Yes 11:56 AM Rt Groin No bleeding/hematoma Isabel Fay RT (R) Pulses Time Site Pre-Procedure Post-Procedure Note 03/10/2017 8:36:00 AM Bilateral DP & PT 1+ 03/10/2017 8:36:00 AM Bilateral radial 2+ 10:34:00 AM Bilateral DP & PT 1+ 10:34:00 AM Bilateral radial 1+ 03/10/2017 10:45:00 AM Bilateral DP & PT 1+ 03/10/2017 11:00:00 AM Bilateral DP & PT 1+ 03/10/2017 11:15:00 AM Bilateral DP & PT 1+ 03/10/2017 11:30:00 AM Bilateral DP & PT 1+ Updated by Karishma Shook RN on 03/10/2017 11:56:51 AM electronically signed on 03/10/2017 11:57:27 AM with status of Final
[2017-03-10] MEDS ORDERED: Ondansetron ODT 4 MG TAB.RAPDIS SL PRN (13:46)
[2017-03-10] MEDS ORDERED: *HR* Morphine 2 MG/ML SYRINGE IVP PRN (13:46)
[2017-03-10] MEDS ORDERED: Acetaminophen 325 MG TABLET PO PRN (13:46)
[2017-03-10] MEDS ORDERED: Naloxone 0.4 MG/ML INJ IVP PRN (13:46)
[2017-03-10] MEDS ORDERED: Tirofiban 12.5 MG/250ML 12.5 MG/250 ML BAG IVC SCH (13:46)
[2017-03-10] MEDS ORDERED: Nitroglycerin 0.4 MG TAB.SUBL SL PRN (13:46)
[2017-03-11 07:17] LABS: Basophils # 0.1 K/mcL (0.0-0.2); Basophils % 0.5 %; Eosinophils # 0.4 K/mcL (0.0-0.6); Eosinophils % 3.5 %; Hematocrit 48.2 % (37.5-50.1); Hemoglobin 15.6 g/dL (12.9-16.9); Immature Granulocytes % 0.3 % (0-4); Lymphocytes # 3.3 K/mcL (0.6-4.6); Lymphocytes % 28.3 %; Mean Corpuscular HGB Conc 32.4 g/dL (31.6-35.5); Mean Corpuscular Hemoglobin 28.3 pg (28.0-33.3); Mean Corpuscular Volume 87.3 fL (83.0-100.0); Mean Platelet Volume 9.8 fL (9.4-12.4); Monocytes % 8.8 %; Neutrophils # 6.8 K/mcL (1.6-8.9); Platelet Count 259 K/mcL (140-400); Red Blood Count 5.52 M/mcL (4.19-5.50); Red Cell Distribution Width 13.2 % (11.5-14.5); Segmented Neutrophils % 58.6 %
[2017-03-11 07:28] LABS: Alanine Aminotransferase 29 Units/L (0-55); Albumin 3.2 g/dL (3.5-5.0); Albumin/Globulin Ratio 0.9 (1.1-2.2); Alkaline Phosphatase 66 Units/L (38-126); Aspartate Amino Transferase 61 Units/L (5-34); BUN/Creatinine Ratio 10 (6-26); Blood Urea Nitrogen 11 mg/dL (8-26); Calcium 9.2 mg/dL (8.6-10.8); Carbon Dioxide 26 mEq/L (19-29); Chloride 106 mEq/L (98-109); Globulin 3.5 g/dL (2.4-3.5); Glucose 93 mg/dL (70-99); Osmolality,Calculated 287 (280-300); Potassium 4.3 mEq/L (3.5-4.5); Sodium 139 mEq/L (136-145); Total Protein 6.7 g/dL (6.0-8.3); eGFR For African Americans > 60 (> 60); eGFR For Non-African Americans > 60 (> 60)
--- NOTE | 2017-03-11 08:28 | Internal Med Progress Note ---
Date of Encounter: 03/11/17 Time of Encounter: 08:26 - Assessment and plan (1) NSTEMI (non-ST elevated myocardial infarction) Current Visit: Yes Status: Acute Assessment and plan: Patient presents with symptoms of typical angina with chest pain radiating into his left jaw improve with sublingual nitroglycerin. - EKG demonstrates T-wave depressions on admission in leads V2-V4, EKG this am without ST depression or elevation. Troponin 0.12 -> 1.02 -> 8.10 -> 19.83 - MARGARITA score: 4 ( greater than 3 CAD risk factors, aspirin use in the last 7 days, EKG changes, positive cardiac markers) Cardiac Hx 12/08: CTA neck-Unremarkable. Echo-EF 60-65%, mild LV diastolic dysfunction. Post catherization with stent placement: Cardiac catheter with coronary intervention. Diagnostic findings: LM-normal LAD-60% proximal Cx-30% mid, ectatic OM 2-100% proximal, ectatic RCA-40-50% mid, dominant LVEF-50-55% PCI: OM 2- 100% to 0% with a 3.0 mm x 24 mm Synergy GENI proximal postdilated to 3.5 mm and a 2.25 mm x 20 mm Synergy GENI in the midportion which is overlapped by the proximal stent. Result of procedure: 1. Severe 1 vessel coronary disease with successful recatheterization using drug-eluting stent implantation 2 Plan: - ASA daily - Prasugrel 10mg PO daily - Atorvastatin 40 mg by mouth daily - Metoprolol Tartrate 12.5mg PO BID - Sublingual Nitro - Restart Lisinopril when pt bp will tolerate. (2) HTN (hypertension) Current Visit: No Status: Chronic Assessment and plan: Patient has a known history of hypertension for which she was taking lisinopril- hydrochlorothiazide. - Current blood pressure appropriate Plan: - Hold lisinopril as BP is on the low end of normal. - Start metoprolol 12.5 mg by mouth twice a day Qualifiers: Hypertension type: essential hypertension Qualified Code(s): I10 - Essential (primary) hypertension (3) Hyperlipemia Current Visit: No Status: Chronic Assessment and plan: Cholesterol 273, LDL 213, Plan: - Atorvastatin 40mg PO daily - discuss diet changes and exercise routine. Qualifiers: Hyperlipidemia type: mixed hyperlipidemia Qualified Code(s): E78.2 - Mixed hyperlipidemia (4) DVT prophylaxis Current Visit: Yes Status: Acute Assessment and plan: SCDs - Subjective Interval history: Patient seen this am, chest pain free, doing well since cardiac catherization yesterday. tolerating oral intake, voiding, having bowel movements. No further concerns this am. - Constitutional Vitals: Temp Pulse Resp BP Pulse Ox 98.1 F 76 17 106/73 92 03/11/17 07:33 03/11/17 07:33 03/11/17 07:33 03/11/17 07:33 03/11/17 07:33 General appearance: Present: cooperative, A&O X 3, pleasant - Head Head exam: Present: atraumatic, normocephalic - Eye Eye exam: Present: PERRL, conjuntiva pink, sclera anicteric Pupils: Present: PERRL - Neck Neck exam general surgery: Present: supple, trachea midline. Absent: lymphadenopathy - Respiratory Respiratory exam: Present: CTAB. Absent: accessory muscle use, rales, rhonchi, wheezes - Cardiovascular Cardiovascular exam: Present: RRR, +S1, +S2. Absent: diastolic murmur, gallop, rubs, systolic murmur - GI/Abdominal GI/Abdominal exam: Present: normal bowel sounds, soft, no peritoneal signs. Absent: distended, tenderness - Extremities Exam Extremities exam: Present: warm, radial pulses palpable and symmetrical. Absent : calf tenderness, cyanotic, pedal edema - Neurological Exam Neurological exam: Present: CN II-XII intact, oriented X3, no focal deficits. Absent: pronater drift, facial droop, speech deficit - Skin Skin exam: Present: dry, intact Internal Medicine: Result - Labs CBC & Chem 7: 03/11/17 06:52 03/11/17 06:52 Labs: Short CBC 03/11/17 Range/Units 06:52 WBC 11.6 H (4.3-11.1) K/mcL Hgb 15.6 (12.9-16.9) g/dL Hct 48.2 (37.5-50.1) % Plt Count 259 (140-400) K/mcL Neutrophils # 6.8 (1.6-8.9) K/mcL BMP 03/11/17 06:52 Sodium 139 Potassium 4.3 Chloride 106 Carbon Dioxide 26 BUN 11 Creatinine 1.08 Glucose 93 Calcium 9.2 Liver Function 03/11/17 Range/Units 06:52 Total Bilirubin 1.0 (0.2-1.2) mg/dL AST 61 H (5-34) Units/L ALT 29 (0-55) Units/L Alkaline Phosphatase 66 (38-126) Units/L Albumin 3.2 L (3.5-5.0) g/dL - ABG Interpretation ABG results: PT/INR, D-dimer PT 11.5 Seconds (9.4-12.1) 03/09/17 17:08 - VTE Reasons for not Prescribing Prophylaxis: Not indicated-Anticoagulated or INR therapeutic Consult Discharge Plan - Plan Referrals: Thomas Gannon MD [Primary Care Provider] -
--- NOTE | 2017-03-11 08:58 | Discharge Summary ---
<Ray Tompkins - Last Filed: 03/11/17 08:58> Date of Encounter: 03/11/17 Time of Encounter: 08:57 - Discharge Diagnosis (1) NSTEMI (non-ST elevated myocardial infarction) Priority: Primary Status: Acute (2) HTN (hypertension) Priority: Secondary Status: Chronic Qualifiers: Hypertension type: essential hypertension Qualified Code(s): I10 - Essential (primary) hypertension (3) Hyperlipemia Priority: Secondary Status: Chronic Qualifiers: Hyperlipidemia type: mixed hyperlipidemia Qualified Code(s): E78.2 - Mixed hyperlipidemia (4) DVT prophylaxis Priority: Secondary Status: Acute - Discharge Medications Prescriptions: Nitroglycerin 0.4 mg SL Q5MIN PRN #6 tab.subl PRN Reason: Chest Pain Aspirin 81 mg PO DAILY 90 Days #90 tab.chew Atorvastatin [Lipitor] 40 mg PO HS 30 Days #30 tablet Metoprolol [Lopressor] 12.5 mg PO BID 30 Days #60 tablet Prasugrel [Effient] 10 mg PO DAILY 30 Days #30 tablet Home Medications: Multivits,Ca,Min/Iron/FA/Lycop [Centrum Men's Tablet] 1 each PO QPM 12/01/14 [ History] Fluticasone Propionate Nasal [Flonase] 2 spr NS BID 03/10/17 [History] Loratadine [Claritin] 10 mg PO DAILY 03/10/17 [History] Aspirin 81 mg PO DAILY 90 Days #90 tab.chew 03/11/17 [Rx] Atorvastatin [Lipitor] 40 mg PO HS 30 Days #30 tablet 03/11/17 [Rx] Metoprolol [Lopressor] 12.5 mg PO BID 30 Days #60 tablet 03/11/17 [Rx] Nitroglycerin 0.4 mg SL Q5MIN PRN #6 tab.subl 03/11/17 [Rx] Prasugrel [Effient] 10 mg PO DAILY 30 Days #30 tablet 03/11/17 [Rx] Allergies/Adverse Reactions: 3 Allergy/AdvReac Type Severity Reaction Status Date / Time No Known Allergies Allergy Verified 03/09/17 14:42 Date of admission: 03/10/17 07:59 Primary care physician: Thomas Gannon MD Discharging clinician: Ray Tompkins Anticipated date of discharge: 03/11/17 - Patient Status Disposition: Home, Self-Care Condition: Good Functional capacity at discharge: independent ambulation Overall status at discharge: patient is progressing back to baseline - Discharge Instructions Instructions: Prasugrel (By mouth), Myocardial Infarction (DC), Left Heart Catheterization (DC), Coronary Intravascular Stent Placement (DC) Follow Up With: Yobany Silva CNP [Advanced Practice Nurse] - Thomas Gannon MD [Primary Care Provider] - (please follow up with physician in 3-5 days) Forms: ED Satisfaction Letter Additional Instructions: 1. Follow-up with your primary care provider in the next 3-5 days 2. Take all prescriptions as prescribed, any concerns or questions contact her primary care provider. 3. Return to the emergency department if: Recurrence of chest pain, diaphoresis new-onset nausea vomiting with chest pain. Or any other concerning medical symptoms or signs. 4. Follow-up with cardiology the next 2-3 weeks for reevaluation and possible stress test. - Diet and Activity Activity: increase activity as tolerated Diet: low fat, low cholesterol, low salt diet Interval History: Mr. Fuller is a 66 year old male past medical history of hypertension, Mcgrath's palsy, diastolic heart failure presented to the emergency department with left- sided chest pain 03/09/2017. Initial EKG demonstrated ST depressions in leads V2 through V4. Patient was given aspirin, morphine, beta breanne placed on heparin drip given sublingual nitroglycerin and placed on oxygen. He is admitted to general medical floor placed on cardiac monitoring and cardiology was consulted. Overnight he was placed on nitroglycerin drip with Troponin 0.12 -> 1.02 -> 8.10 -> 19.83. He underwent cardiac catheterization with details listed below. Had resolution of his chest pain and improvement of his symptoms. He was started on oral metoprolol, Prasugrel, ASA. His lisinopril was held as his blood pressure has been on the low end of normal since admission. He was monitored overnight and deemed stable for discharge on 2016 and was chest pain-free at that time. Dietary modifications, exercise, medical compliance and follow-up instructions were discussed which the patient and his demonstrate understanding and agreement. Prescriptions were provided at the time of discharge patient was recommended to follow up with primary care provider. Cardiac Hx 12/08: CTA neck-Unremarkable. Echo-EF 60-65%, mild LV diastolic dysfunction. Post catherization with stent placement 03/10/2017: Cardiac catheter with coronary intervention. Diagnostic findings: LM-normal LAD-60% proximal Cx-30% mid, ectatic OM 2-100% proximal, ectatic RCA-40-50% mid, dominant LVEF-50-55% PCI: OM 2- 100% to 0% with a 3.0 mm x 24 mm Synergy GENI proximal postdilated to 3.5 mm and a 2.25 mm x 20 mm Synergy GENI in the midportion which is overlapped by the proximal stent. Result of procedure: 1. Severe 1 vessel coronary disease with successful recatheterization using drug-eluting stent implantation 2 Hospital course: Mr. Fuller is a 66 year old male - Time Spent with Patient Total time spent providing and/or coordinating discharge services: - Constitutional Vitals: Temp Pulse Resp BP Pulse Ox 98.1 F 76 17 106/73 92 03/11/17 07:33 03/11/17 07:33 03/11/17 07:33 03/11/17 07:33 03/11/17 07:33 General appearance: Present: cooperative, A&O X 3, pleasant - Head Head exam: Present: atraumatic, normocephalic - Eye Eye exam: Present: PERRL, conjuntiva pink, sclera anicteric Pupils: Present: PERRL - Neck Neck exam general surgery: Present: supple, trachea midline. Absent: lymphadenopathy - Respiratory Respiratory exam: Present: CTAB. Absent: accessory muscle use, rales, rhonchi, wheezes - Cardiovascular Cardiovascular exam: Present: RRR, +S1, +S2. Absent: diastolic murmur, gallop, rubs, systolic murmur - GI/Abdominal GI/Abdominal exam: Present: normal bowel sounds, soft, no peritoneal signs. Absent: distended, tenderness - Extremities Exam Extremities exam: Present: warm, radial pulses palpable and symmetrical. Absent : calf tenderness, cyanotic, pedal edema - Neurological Exam Neurological exam: Present: alert, oriented X3, no focal deficits. Absent: pronater drift, facial droop, speech deficit - Skin Skin exam: Present: dry, intact - VTE Reasons for not Prescribing Prophylaxis: Not indicated-Anticoagulated or INR therapeutic <Terrell Bolanos - Last Filed: 03/11/17 17:15> Date of Encounter: 03/11/17 - Discharge Diagnosis (1) NSTEMI (non-ST elevated myocardial infarction) Status: Acute (2) HTN (hypertension) Status: Chronic Qualifiers: Hypertension type: essential hypertension Qualified Code(s): I10 - Essential (primary) hypertension (3) Hyperlipemia Status: Chronic Qualifiers: Hyperlipidemia type: mixed hyperlipidemia Qualified Code(s): E78.2 - Mixed hyperlipidemia (4) CAD (coronary artery disease) Priority: Secondary Status: Chronic Qualifiers: Coronary Disease-Associated Artery/Lesion type: [place] artery [place] vs. transplanted heart: [place] heart Associated angina: without angina Qualified Code(s): I25.10 - Atherosclerotic heart disease of [place] coronary artery without angina pectoris Date of admission: 03/10/17 07:59 Primary care physician: Thomas Gannon MD Hospital course: Mr. Fuller is a 66 year old male - Time Spent with Patient Total time spent providing and/or coordinating discharge services: 26min - Constitutional Vitals: Temp Pulse Resp BP Pulse Ox 98.1 F 83 16 120/86 94 03/11/17 10:57 03/11/17 10:57 03/11/17 10:57 03/11/17 10:57 03/11/17 10:57 - Attending Attestation I examined this patient and my medical decision-making was reviewed with the Resident Physician on 03/11/17. I agree with the documented findings, disposition and treatment plan as described except to the extent set forth below. Mr Fuller has been admitted for acute NSTEMI. He is s/p 2 stent placement. He is now afebrile with stable vitals and ready for discharge home. Exam Alert. Comfortable Mucus membranes dry Heart reg No wheeze Plan D/C home DAPT per cardiology
[2017-03-11] MEDS ORDERED: Aspirin 81 MG TAB.CHEW PO SCH (09:00)
--- NOTE | 2017-03-11 09:42 | Cardiology Progress Note ---
Date of Encounter: 03/11/17 Time of Encounter: 09:40 Assessment and Plan (1) NSTEMI (non-ST elevated myocardial infarction) Current Visit: Yes Status: Acute Per Cardiology: NSTEMI. Peak trop 19.83. S/p LHC: Lesion Findings/Interventions * Left Main Coronary Artery The LMCA is angiographically free of disease. * Left Anterior Descending There is a 60% stenosis in the Mid LAD. * Circumflex There is a 30% stenosis in the Mid Circumflex. This lesion is further described as ectatic. There is a 44 mm long, 100% stenosis in the Proximal 2nd Marginal. The lesion has a MARGARITA flow of 0 and has thrombus present. An intervention was performed on the 2nd Marginal with a final stenosis of 0%. There were no lesion complications. The final MARGARITA flow was 3. * Right Coronary Artery There is a 40% stenosis in the Mid RCA. S/p PTCS/GENI Prox OM2. Ef on echo 50%. On aspirin, statin, beta breanne, Effient -- assistance card provided. Has SL NTG. Has CR consult. All questions answered -- patient and family verbalized understanding. Education provided regarding post catheterization management and importance of no discontinuation of aspirin or Effient for at least one year unless directed by cardiology. Discharge already pending. Will s/o, f/u scheduled. Discussion w patient/family: The assessment and plan as outlined above was discussed with the patient and/or family members who expressed understanding and agreement. All questions were answered. Thank you for involving us in the care of your patient. Please call with any questions. Subjective Principal diagnosis: Chest discomfort Interval history: Patient denies any concerns over night. Denies any chest pain, short of breath, palpitations. Denies any active bleeding or blood loss. Denies any right groin discomfort. Objective Vital Signs, Last 4 Hours Temp Pulse Resp BP Pulse Ox 03/11/17 07:33 98.1 F 76 17 106/73 92 General: Conversant, No Apparent Distress HEENT: Atraumatic, Normocephaly, Mucus Membranes Moist Neck: No JVD, Normal carotid pulses Cardiac: Reg Rate and Rhythm, Normal S1 and S2, No Murmur Lungs: Normal Breath Sounds, No Wheeze, Rales, Rhonchi Neuro: Alert and responsive, No focal deficits noted Abdomen: Soft, Non-Tender Skin: No rashes noted on visualized skin, Other (Right groin site dry and intact , no hematoma, no ecchymosis, no bleeding, right DP and PT pulses 2+ palpable) Musculoskeletal: No Chest Wall Tenderness Extremities: No Clubbing, No Cyanosis, No Edema, Normal Pulses Results 03/11/17 06:52 03/11/17 06:52 Lab Results Laboratory Tests 03/09/17 03/09/17 03/09/17 14:29 17:08 22:03 Troponin I 0.12 H* 1.02 H* 8.10 H* 03/10/17 04:23 Troponin I 19.83 H* ITS Impressions Chest X-Ray 03/09/17 14:15 IMPRESSION: No significant findings in the chest. D/ / Luis Miguel Hsu MD / Luis Miguel Hsu MD Interpreting Provider: Luis Miguel Hsu MD Echocardiogram 03/09/17 16:30 Impressions: LVEF 50%. Normal LV chamber size, wall thickness and function. Mild left ventricular diastolic dysfunction. Normal right ventricular structure and function. Mild pulmonary hypertension. No significant valvular dysfunction. Left Ventricular Wall Motion: Rest Echo Findings All wall segments showed normal motion. Findings: Study Quality * Technically adequate exam. ECG Findings * Normal sinus rhythm. Left Ventricle * LVEF 50%. * Normal LV chamber size, wall thickness and function. * Mild left ventricular diastolic dysfunction. Right Ventricle * Normal right ventricular structure and function. Left Atrium * Mild to moderately dilated left atrium. Right Atrium * Mildly dilated right atrium. Aortic Valve * Trileaflet aortic valve with normal function. * No aortic stenosis. * Trace aortic regurgitation. Mitral Valve * Normal mitral valve structure and function. * No mitral regurgitation. * No mitral stenosis. Tricuspid Valve * Normal tricuspid valve structure and function. * Trace tricuspid regurgitation. * Mild pulmonary hypertension. Pulmonic Valve * Normal pulmonic valve structure and function. * Trace pulmonic regurgitation. Aorta * Normally sized aortic root. IVC * The IVC is not well evaluated. Pericardium * The pericardium appears normal. Pulmonary Artery * Normal visualized portions of the main pulmonary artery. Active Medications Acetaminophen (Tylenol) 650 mg PO Q6HR PRN PRN Reason: Mild Pain (1-3) Stop: 06/16/18 16:26 Aspirin (Aspirin) 81 mg PO DAILY [facility] Stop: 09/09/17 09:01 Atorvastatin Calcium (Lipitor) 40 mg PO HS [facility] Stop: 09/08/17 21:01 Last Admin: 03/10/17 21:04 Dose: 40 mg Metoprolol Tartrate (Lopressor) 12.5 mg PO BID [facility] Stop: 09/08/17 21:01 Last Admin: 03/10/17 21:04 Dose: 12.5 mg Morphine Sulfate (Morphine Sulfate) 1 mg IVP Q4HR PRN PRN Reason: Severe Pain (7-10) Stop: 09/08/17 16:26 Naloxone HCl (Narcan) 0.4 mg IVP Q2MIN PRN PRN Reason: Opioid Reversal Stop: 09/08/17 16:26 Nitroglycerin (Nitroglycerin) 0.4 mg SL Q5MIN PRN PRN Reason: Chest Pain Stop: 09/08/17 14:25 Ondansetron HCl (Zofran Odt) 4 mg SL Q8HR PRN PRN Reason: Nausea And Vomiting Stop: 09/08/17 16:26 Prasugrel (Effient) 10 mg PO DAILY [facility] Stop: 09/10/17 09:01 - Imaging and Cardiology Echo: report reviewed Cardiac cath: report reviewed - VTE Reasons for not Prescribing Prophylaxis: Not indicated-Anticoagulated or INR therapeutic Consult Discharge Plan - Plan Instructions: Myocardial Infarction (DC) Additional Instructions: 1. Follow-up with your primary care provider in the next 3-5 days 2. Take all prescriptions as prescribed, any concerns or questions contact her primary care provider. 3. Return to the emergency department if: Recurrence of chest pain, diaphoresis new-onset nausea vomiting with chest pain. Or any other concerning medical symptoms or signs. 4. Follow-up with cardiology the next 2-3 weeks for reevaluation and possible stress test. Referrals: Yobany Silva CNP [Advanced Practice Nurse] - Thomas Gannon MD [Primary Care Provider] - Prescriptions: Nitroglycerin 0.4 mg SL Q5MIN PRN #6 tab.subl PRN Reason: Chest Pain Aspirin 81 mg PO DAILY 90 Days #90 tab.chew Atorvastatin [Lipitor] 40 mg PO HS 30 Days #30 tablet Metoprolol [Lopressor] 12.5 mg PO BID 30 Days #60 tablet Prasugrel [Effient] 10 mg PO DAILY 30 Days #30 tablet
[2017-03-11 10:59] VITALS: BP 120/86
--- NOTE | 2017-03-12 10:02 | Electrocardiograph Report ---
[facility] [facility] Test Date: 2017-03-09 Pat Name: Marvin Fuller Department: 104 Room: 2A26 Gender: M Cardiac Cath Lab Radiology Technologist: LEANDER : 1950 Requested By: Camden Hatfield Order Number: [id number] Reading MD: Efraín Massey MD Measurements Intervals [place] Rate: 79 P: 53 [place]: 174 QRS: -1 QRSD: 100 T: 61 QT: 377 QTc: 412 Interpretive Statements SINUS RHYTHM MODERATE ST DEPRESSION [0.05+ mV ST DEPRESSION] Electronically Signed On 03-12-2017 9:31:40 EST by Efraín Massey MD
--- NOTE | 2017-03-12 12:12 | Electrocardiograph Report ---
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
--- NOTE | 2017-03-12 16:54 | Electrocardiograph Report ---
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
--- NOTE | 2017-03-12 16:59 | Electrocardiograph Report ---
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
--- NOTE | 2017-03-12 17:06 | Electrocardiograph Report ---
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
--- NOTE | 2017-03-12 17:06 | Electrocardiograph Report ---
[address] [place] [address] Test Date: 2017-03-10 Pat Name: Marvin Fuller Department: 112 Room: 2A26 Gender: Manager Utilization Review: : 1950 Requested By: Alexy Mccoy Order Number: [id number] Reading MD: Flex Magaña Measurements Intervals [place] Rate: 73 P: 59 [place]: 180 QRS: -19 QRSD: 91 T: -75 QT: 403 QTc: 429 Interpretive Statements SINUS RHYTHM MODERATE T-WAVE ABNORMALITY, CONSIDER LATERAL ISCHEMIA Electronically Signed On 03-12-2017 17:04:43 EST by Flex Magaña
== END 2017-03-11 11:55 | disposition home or self-care (01) | DRG 174 ==
LOC: 2ANU 14:11 → EMEROO 14:11 → SUATTDRO 16:02 → 2ANU 16:52
PROVIDERS: ADMIT Internal Medicine; ATTEND Internal Medicine